=== PATIENT | female | born 1995 | race Caucasian/White ===

== ENCOUNTER 2019-05-13 11:59 | Emergency (ER) | payer OTHER ==
[~2019-05-13] VITALS: Ht 165.1 cm; Wt 74.8 kg
[2019-05-13 12:07] VITALS: BP 132/72
--- NOTE | 2019-05-13 12:20 | NUR ---
23 Y FEMALE BIB BOYFRIEND C/O VAGINAL SPOTTING TODAY. DENIES PAIN OR N/V/D. LMP 03/28/19. 6 WKS OF , G1. TAKING PRENATALS. VSS AT THIS TIME. PT AA0X4. BED IS DOWN, LOCKED, BED RAIL X 1, ERMD TO SEE PT. PMH- DENIES
--- NOTE | 2019-05-13 12:23 | NUR ---
DR JOSEPH AT BEDSIDE
--- NOTE | 2019-05-13 12:44 | NUR ---
US AT BEDSIDE
[2019-05-13 12:55] LABS: BASOPHILS % (AUTO) 0.5 % (0.0-2.0); EOSINOPHILS # (AUTO) 0.1 K/uL (0-0.4); EOSINOPHILS % (AUTO) 0.8 % (0.0-4.0); HEMATOCRIT 42.9 % (36-48); HEMOGLOBIN 14.7 g/dL (12.0-16.0); LYMPHOCYTES # (AUTO) 2.8 K/uL (2.5-16.5); LYMPHOCYTES % (AUTO) 30.4 % (20.5-51.1); MEAN CORPUSCULAR HEMOGLOBIN 31 pg (27-31); MEAN CORPUSCULAR HGB CONC 34 g/dL (33-37); MEAN CORPUSCULAR VOLUME 91.8 fL (80-94); MONOCYTES # (AUTO) 0.7 K/uL (0.8-1.0); MONOCYTES % (AUTO) 7.4 % (1.7-9.3); NEUTROPHILS # (AUTO) 5.6 K/uL (1.8-7.7); NEUTROPHILS % (AUTO) 60.9 % (42.2-75.2); PLATELET COUNT (AUTO) 254 K/uL (140-450); RED BLOOD CELL COUNT(AUTO) 4.67 MIL/uL (4.20-5.40); RED CELL DISTRIBUTION WIDTH 12.7 % (11.6-13.7); WHITE BLOOD COUNT (AUTO) 9.2 K/uL (4.8-10.8)
[2019-05-13 14:10] LABS: APPEARANCE,URINE CLEAR (CLEAR); BILIRUBIN,URINE NEGATIVE (NEGATIVE); BLOOD, URINE 2+ (NEGATIVE); COLOR,URINE YELLOW (YELLOW); LEUKOCYTE ESTERASE ,URINE NEGATIVE (NEGATIVE); NITRITE, URINE NEGATIVE (NEGATIVE); UGLUCOSE NEGATIVE (NEGATIVE)
--- NOTE | 2019-05-13 14:20 | NUR ---
pt placed on monitoring analyst at this time
[2019-05-13] MEDS ORDERED: LACTATED RINGERS 1,000 ML IV ONE (14:25)
--- NOTE | 2019-05-13 14:30 | NUR ---
VSS AT THIS TIME. PT AA0X4. DENIES PAIN
[2019-05-13 14:34] LABS: WBC,URINE 0-5 /HPF (0-5)
--- NOTE | 2019-05-13 14:36 | NUR ---
DR JOSEPH SPEAKING WITH PT AT THIS TIME
[2019-05-13 14:56] LABS: PROTHROMBIN TIME 9.9 secs (10.8-13.4)
--- NOTE | 2019-05-13 15:03 | NUR ---
DR. ROONEY AT BEDSIDE EVALUATING PATIENT.
--- NOTE | 2019-05-13 15:13 | NUR ---
PT SIGNED CONSENT FOR [facility]
--- NOTE | 2019-05-13 15:35 | NUR ---
JUVE GIVEN IM LEFT DELTIOD. VERIFIED BY SADIE PATEL.
--- NOTE | 2019-05-13 15:37 | NUR ---
PT GIVEN COPY OF COPY OF ADMINISTRATION CONTROL RECORD. LAB ALSO GIVEN COPY. AND COPY PLACED IN PT CHART
--- NOTE | 2019-05-13 16:00 | NUR ---
NO ADVERSE REACTIONS AT THIS TIME. DENIES PAIN.
[2019-05-13 16:25] VITALS: BP 111/63
== END 2019-05-13 16:33 | disposition home or self-care (01) ==
LOC: MED 11:59
DX: O20.0 Threatened abortion (principal); Z88.0 Allergy status to penicillin; Z3A.01 Less than 8 weeks gestation of pregnancy
CPT/HCPCS: 36415; 76817; 81001; 81025; 84702; 85025; 85610; 86886; 86900; 86901; 99284; J2790; J7120; Q0092; 96360; 96361